=== PATIENT | female | born 1960 | race Caucasian/White ===

== ENCOUNTER 2024-07-09 09:48 | Outpatient (AMB) | payer MEDICARE, MEDICAID, SELFPAY ==
[2024-07-09 10:11] VITALS: BP 128/73; PULSE 64; RESP 18; TEMP 36.5; O2SAT 95; BMI 32.4
--- NOTE | 2024-07-09 10:11 | ORTHONT_ITS ---
Vital signs 07/09/24 10:11 Height 1.6 m Height Method Stated Weight 83.092 kg Weight Measurement Method Standing Scale BMI 32.4 BP 128/73 Blood Pressure Source Automatic Cuff Blood Pressure Location Left Upper Arm Position Sitting Respiration 18 Pulse 64 Pulse Source Monitor Temp 97.7 F Temp Source Temporal Artery Scan Pulse Oximetry (%) 95 Oxygen Delivery Method Room Air Med/Allergies Allergies & Medications Allergies Unable to Assess Allergy (Verified 07/09/24 10:15) Medication Reconciliation acetaminophen 500 mg/15 mL oral liquid 500 mg PO QID PRN 07/09/24 [History Confirmed 07/09/24] albuterol sulfate 2.5 mg/3 mL (0.083 %) solution for nebulization 2.5 mg inhalation Q6H 07/09/24 [History Confirmed 07/09/24] cyclosporine 0.05 % eye drops in a dropperette (Restasis) 1 drp Both eyes Q12H 07/09/24 [History Confirmed 07/09/24] diclofenac sodium 75 mg tablet,delayed release 75 mg PO BID 07/09/24 [History Confirmed 07/09/24] fexofenadine 180 mg tablet 180 mg PO Q24H 07/09/24 [History Confirmed 07/09/24] fluticasone 500 mcg-salmeterol 50 mcg/dose blistr powdr for inhalation (Advair Diskus) 1 inh inhalation BID 07/09/24 [History Confirmed 07/09/24] fluticasone furoate 50 mcg/actuation blister powder for inhalation inhalation 07/09/24 [History Confirmed 07/09/24] gabapentin 100 mg capsule 100 mg PO QDAY 07/09/24 [History Confirmed 07/09/24] ipratropium bromide 0.02 % solution for inhalation 2.5 ml inhalation Q6H PRN 07/09/24 [History Confirmed 07/09/24] meloxicam 7.5 mg tablet 7.5 mg PO QDAY #45 tabs 07/09/24 [Rx] metformin 500 mg tablet 500 mg PO QDAY 07/09/24 [History Confirmed 07/09/24] montelukast 10 mg tablet (Singulair) 10 mg PO QDAY 07/09/24 [History Confirmed 07/09/24] Exam Exam Patient is in no acute distress and is cooperative with the examination today. Breathing is nonlabored. In no respiratory distress. Bilateral extremities were evaluated and demonstrates sensation intact to light touch. Palpable pedal pulses are present. No significant edema is present. Bilateral hips were examined. The patient has no pain with log roll of the hips. Internal rotation to 30 degrees and external rotation to 30 degrees is painless. Negative FADIR. The left knee was examined. The left knee is in [varus] alignment. Range of motion from [0-115] degrees. Knee is stable to varus and valgus as well as AP translation with <5mm. Patient has a [negative] McMurrays. There is [no] pain with patellofemoral compression and [no] crepitus noted. The knee is [tender] to palpation [medially]. The right knee was also examined. The right knee is in [varus] alignment. Range of motion from [0-120] degrees. Knee is stable to varus and valgus as well as AP translation with <5mm. Patient has a [negative] McMurrays. There is [no] pain with patellofemoral compression and [no] crepitus noted. The knee is [tender] to palpation [medially]. I have no x-rays to review today. The reports are of her foot Assessment and Plan Problem List (1) Degenerative arthritis of knee, bilateral: Status: Acute Plan: Patient is a 63-year-old female with bilateral knee pain and bilateral knee arthritis. The severity is unknown as I do not have x-rays to view.I would like to see the patient back after x-rays are done. We can do a phone visit as she lives in [place]. I also prescribed her meloxicam Advanced Care Planning Discussion Advance care planning discussed with:: patient Office Procedures GNS Level of Care Nursing/Assessment Patient Status: Initial/New Patient Nursing Assessment/Reassesment: Medication Reconciliation, Update PMH in EMR and Vital Signs Coordination of Care: Complex Care and Chronic Disease 1-5, Education Complex Pt/Fam, Consent,records obtained, informed consent, 1 Ins Authorization, Lab and Imaging orders, Results/Orders obtained and Staff clarify orders New Patient Charge New Patient Point Assignment: 1124 New Patient Point Charge: [place] Level 4 ([id number]) [place] Intake Visit Data Collection New Patient or Established: New Patient (never been to [facility]) Reason for Visit:: LEFT KNEE OA Seen by Clinical Staff ONLY (RN/MA): No [facility] Required: No PCP or OBGYN visit in last 3 months: Yes Hx Now: No Do You Feel Safe at Home: Yes Authorities Contacted: N/A Questionairres Past Medical History Past Medical History Have you ever been diagnosed with any of the following: Respiratory Problems Asthma: Yes Smoking: No Smoking Exposure: No Subjective Visit Visit for: new patient and knee Immunization / Flu Flu Vaccine in the Last 12 Months: No Flu Vaccine Exclusion Criteria: No Exclusion Criteria History of Present Illness Chief complaint: Bilateral knee pain Dorothy is a pleasant 63-year-old female with left greater than right knee pain. This has been ongoing for 1 year. She had a prior arthroscopic surgery on the right. She recently had an injection on the left knee the last 3 months and this helped tremendously. She is not on any anti-inflammatories. The pain is medially Pain Pain level (0-10): 0 Ambulatory data Ambulatory device: none Treatments Improvement with previous injections: Yes Improvement with PT: No Improvement with NSAIDS: no Review of Systems Review of Systems: All systems negative unless otherwise noted in HPI.
== END 2024-07-09 10:37 | disposition home or self-care (01) ==
LOC: HODSRG 09:48
PROVIDERS: PCP Family Medicine; Referring Provider Family Medicine; Supervising Provider Orthopaedic Surgery Adult Reconstructive Orthopaedic Surgery; Visit Provider Orthopaedic Surgery Adult Reconstructive Orthopaedic Surgery
DX: M17.0 Bilateral primary osteoarthritis of knee (principal); M25.562 Pain in left knee; M25.561 Pain in right knee
CPT/HCPCS: 99204; G0463

== ENCOUNTER 2024-07-23 11:21 | Outpatient (AMB) | payer MEDICARE, MEDICAID, SELFPAY ==
--- NOTE | 2024-07-23 11:41 | PD.ORTHCLVIS ---
Med/Allergies Allergies & Medications Allergies Unable to Assess Allergy (Verified 07/09/24 10:15) Exam Exam Patient is in no acute distress and is cooperative with the examination today. Breathing is nonlabored. In no respiratory distress. Bilateral extremities were evaluated and demonstrates sensation intact to light touch. Palpable pedal pulses are present. No significant edema is present. Bilateral hips were examined. The patient has no pain with log roll of the hips. Internal rotation to 30 degrees and external rotation to 30 degrees is painless. Negative FADIR. The left knee was examined. The left knee is in [varus] alignment. Range of motion from [0-115] degrees. Knee is stable to varus and valgus as well as AP translation with <5mm. Patient has a [negative] McMurrays. There is [no] pain with patellofemoral compression and [no] crepitus noted. The knee is [tender] to palpation [medially]. The right knee was also examined. The right knee is in [varus] alignment. Range of motion from [0-120] degrees. Knee is stable to varus and valgus as well as AP translation with <5mm. Patient has a [negative] McMurrays. There is [no] pain with patellofemoral compression and [no] crepitus noted. The knee is [tender] to palpation [medially]. X-rays demonstrates mild arthritis. Joint spaces are relatively preserved Assessment and Plan Problem List (1) Degenerative arthritis of knee, bilateral: Status: Acute Plan: Dorothy is a 63-year-old female with bilateral knee pain and bilateral knee arthritis of mild severity. We discussed nonoperative operative options. Right now we recommend cortisone injections or anti-inflammatories. We recommend continued conservative treatment and she is responding well. She will call us should the pain get worse. We discussed the x-rays in detail Advanced Care Planning Discussion Advance care planning discussed with:: patient Questionairres Past Medical History Past Medical History Have you ever been diagnosed with any of the following: Respiratory Problems Asthma: Yes Smoking: No Smoking Exposure: No Subjective Visit Visit for: new patient and knee Immunization / Flu Flu Vaccine in the Last 12 Months: No Flu Vaccine Exclusion Criteria: No Exclusion Criteria History of Present Illness Chief complaint: bilateral knee pain Dorothy is a pleasant 63-year-old female with left greater than right knee pain. This has been ongoing for 1 year. She had a prior arthroscopic surgery on the right. She recently had an injection on the left knee the last 3 months and this has helped tremendously. She is not on any anti-inflammatories. The pain is medially Pain Pain level (0-10): 0 Ambulatory data Ambulatory device: none Treatments Improvement with previous injections: Yes Improvement with PT: No Improvement with NSAIDS: no Review of Systems Review of Systems: All systems negative unless otherwise noted in HPI.
== END 2024-07-23 11:41 | disposition home or self-care (01) ==
LOC: HODSRG 11:21
PROVIDERS: PCP Family Medicine; Referring Provider Family Medicine; Supervising Provider Orthopaedic Surgery Adult Reconstructive Orthopaedic Surgery; Visit Provider Orthopaedic Surgery Adult Reconstructive Orthopaedic Surgery
DX: M17.0 Bilateral primary osteoarthritis of knee (principal); M25.562 Pain in left knee; M25.561 Pain in right knee
CPT/HCPCS: 99212; G0463